=== PATIENT | male | born 1975 | race Caucasian/White ===

== ENCOUNTER 2018-03-06 13:04 | Outpatient (CLI) | payer MEDICARE, MEDICAID ==
[2018-03-06 19:12] LABS: THYROID STIMULATING HORMONE < 0.08 uIU/mL (0.34-5.60)
[2018-03-06 19:14] LABS: FREE T4 (FREE THYROXINE) 1.51 ng/dL (0.58-1.64)
== END 2018-03-06 13:05 | disposition home or self-care (01) ==
LOC: LAB.N 13:04
PROVIDERS: ATTEND Internal Medicine Endocrinology, Diabetes & Metabolism
DX: E05.00 Thyrotoxicosis with diffuse goiter without thyrotoxic crisis or storm (principal)
CPT/HCPCS: 36415; 81599; 83519; 84439; 84443; 84481

== ENCOUNTER 2018-04-30 08:37 | Outpatient (CLI) | payer MEDICARE, MEDICAID ==
--- NOTE | 2018-05-01 11:12 | Nuclear Medicine Report ---
Reason: GRAVES DISEASE Procedure Date: 05/01/2018 Accession Number: [id number] / [id number] Procedure: NM - Thyroid Imaging and Uptake CPT Code: 74013 FULL RESULT: EXAM: THYROID UPTAKE AND SCAN EXAM DATE: 05/01/2018 10:10 AM. CLINICAL HISTORY: GRAVES DISEASE. COMPARISON: None. TECHNIQUE: Patient was administered 390 microcuries of I-123 orally and returned at 4 and 24 hours for thyroid uptake measurement. At 4 and 24 hours after radioiodine ingestion, anterior gamma camera images of the patient's neck were obtained from 3 standard angles. FINDINGS: Uptake: 4 Hour: 40% (Normal 4-18%). 24 Hour: 73% (Normal 10-35%). Thyroid Scan: Thyroid gland appears mildly enlarged. No discrete hot or cold nodules. IMPRESSION: 1. Homogeneous thyroid gland with elevated radioiodine uptake, consistent with Graves' disease in the correct clinical context. 2. No discrete hot or cold nodules. [facility]
== END 2018-04-30 08:38 | disposition home or self-care (01) ==
LOC: DI 08:37
PROVIDERS: ATTEND Internal Medicine Endocrinology, Diabetes & Metabolism
DX: E05.00 Thyrotoxicosis with diffuse goiter without thyrotoxic crisis or storm (principal)
CPT/HCPCS: 78014

== ENCOUNTER 2019-02-13 11:59 | Outpatient (CLI) | payer MEDICARE, MEDICAID ==
[2019-02-13 19:24] LABS: THYROID STIMULATING HORMONE 1.62 uIU/mL (0.34-5.60)
[2019-02-13 19:26] LABS: FREE T4 (FREE THYROXINE) 0.42 ng/dL (0.58-1.64)
== END 2019-02-13 23:59 | disposition home or self-care (01) ==
LOC: LAB.WCP 11:59
PROVIDERS: ATTEND Internal Medicine Endocrinology, Diabetes & Metabolism
DX: E05.90 Thyrotoxicosis, unspecified without thyrotoxic crisis or storm (principal)
CPT/HCPCS: 36415; 84439; 84443

== ENCOUNTER 2019-06-29 14:11 | Outpatient (CLI) | payer MEDICARE, MEDICAID ==
[2019-06-29 19:26] LABS: THYROID STIMULATING HORMONE < 0.08 uIU/mL (0.34-5.60)
[2019-06-29 19:28] LABS: FREE T4 (FREE THYROXINE) 0.81 ng/dL (0.58-1.64)
== END 2019-06-29 23:59 ==
LOC: LAB.N 14:11
PROVIDERS: ATTEND Internal Medicine Endocrinology, Diabetes & Metabolism
DX: E05.00 Thyrotoxicosis with diffuse goiter without thyrotoxic crisis or storm (principal)
CPT/HCPCS: 36415; 84439; 84443; 84481

== ENCOUNTER 2019-10-06 14:53 | Outpatient (CLI) | payer MEDICARE, MEDICAID ==
[2019-10-06 19:54] LABS: THYROID STIMULATING HORMONE 12.31 uIU/mL (0.34-5.60)
[2019-10-06 19:56] LABS: FREE T4 (FREE THYROXINE) 0.51 ng/dL (0.58-1.64)
[2019-10-06 21:20] LABS: ALBUMIN 3.6 g/dL (3.2-5.5); ALBUMIN/GLOBULIN RATIO 1.3 (1.0-2.2); BILIRUBIN,TOTAL 0.5 mg/dL (0.2-1.0); CALCIUM 8.7 mg/dL (8.5-10.3); CREATININE 0.8 mg/dL (0.6-1.2); TOTAL PROTEIN 6.4 g/dL (6.7-8.2)
== END 2019-10-06 23:59 | disposition home or self-care (01) ==
LOC: LAB.N 14:53
PROVIDERS: ATTEND Physician Assistant Medical
DX: E05.00 Thyrotoxicosis with diffuse goiter without thyrotoxic crisis or storm (principal); E05.90 Thyrotoxicosis, unspecified without thyrotoxic crisis or storm
CPT/HCPCS: 36415; 80053; 84439; 84443

== ENCOUNTER 2020-10-27 19:04 | Outpatient (CLI) | payer MEDICARE, MEDICAID | END 2020-10-27 23:59 | disposition home or self-care (01) | LOC: LAB.R 19:04 | PROVIDERS: ATTEND Family Medicine | DX: R05 Cough (principal); Z20.822 Contact with and (suspected) exposure to COVID-19 ==

== ENCOUNTER 2022-08-10 11:49 | Outpatient (CLI) | payer MEDICARE, MEDICAID ==
[2022-08-10 18:01] LABS: ALBUMIN 3.9 g/dL (3.2-5.5); ALBUMIN/GLOBULIN RATIO 1.2 (1.0-2.2); BILIRUBIN,TOTAL 0.7 mg/dL (0.2-1.0); CALCIUM 9.2 mg/dL (8.5-10.3); CREATININE 1.1 mg/dL (0.6-1.2); POTASSIUM 4.2 mmol/L (3.5-5.0); TOTAL PROTEIN 7.1 g/dL (6.7-8.2)
[2022-08-10 18:03] LABS: BASOPHILS # (AUTO) 0.1 10^3/uL (0.0-0.1); BASOPHILS % (AUTO) 2.3 %; EOSINOPHILS # (AUTO) 0.1 10^3/uL (0.0-0.7); EOSINOPHILS % (AUTO) 1.3 %; HCT - HEMATOCRIT 47.8 % (42.0-52.0); HGB - HEMOGLOBIN 15.8 g/dL (14.0-18.0); LYMPHOCYTES # (AUTO) 1.4 10^3/uL (1.5-3.5); LYMPHOCYTES % (AUTO) 36.3 %; MEAN CORPUSCULAR HEMOGLOBIN 32.4 pg (27.0-31.0); MEAN CORPUSCULAR HGB CONC 33.1 g/dL (32.0-36.0); MEAN CORPUSCULAR VOLUME 98.2 fL (80.0-94.0); MEAN PLATELET VOLUME 9.7 fL (7.4-11.4); MONOCYTES # (AUTO) 0.4 10^3/uL (0.0-1.0); MONOCYTES % (AUTO) 10.2 %; NEUTROPHILS # (AUTO) 1.9 10^3/uL (1.5-6.6); NEUTROPHILS % (AUTO) 49.4 %; PLT - PLATELET COUNT 179 10^3/uL (130-450); RED BLOOD COUNT 4.87 10^6/uL (4.70-6.10); RED CELL DISTRIBUTION WIDTH 13.7 % (12.0-15.0); WHITE BLOOD COUNT 3.8 x10^3/uL (4.8-10.8)
[2022-08-10 18:22] LABS: FREE T3 2.61 pg/mL (2.5-3.9); THYROID STIMULATING HORMONE 2.03 uIU/mL (0.34-5.60)
[2022-08-10 18:22] LABS: CHOL/HDL RATIO 4.2 (<5.0); CHOLESTEROL 214 mg/dL; HDL CHOLESTEROL 51 mg/dL; LDL CHOLESTEROL,CALCULATED 148 mg/dL; LDL/HDL RATIO 2.9 (<3.6); TRIGLYCERIDES 77 mg/dL; VLDL CHOLESTEROL 15 mg/dL
[2022-08-10 18:24] LABS: FREE T4 (FREE THYROXINE) 0.79 ng/dL (0.58-1.64)
[2022-08-10 19:40] LABS: ESTIMATED AVERAGE GLUCOSE 91 mg/dL (70-100); HEMOGLOBIN A1c% 4.8 % (4.27-6.07)
== END 2022-08-10 11:50 | disposition home or self-care (01) ==
LOC: LAB.N 11:49
PROVIDERS: ATTEND Internal Medicine Endocrinology, Diabetes & Metabolism
DX: Z00.00 Encounter for general adult medical examination without abnormal findings (principal); E05.00 Thyrotoxicosis with diffuse goiter without thyrotoxic crisis or storm
CPT/HCPCS: 36415; 80053; 80061; 83036; 83721; 84439; 84443; 84480; 84481; 85025

== ENCOUNTER 2022-09-21 11:52 | Outpatient (CLI) | payer MEDICARE, MEDICAID ==
[2022-09-21 17:41] LABS: BASOPHILS # (AUTO) 0.1 10^3/uL (0.0-0.1); BASOPHILS % (AUTO) 2.2 %; EOSINOPHILS % (AUTO) 0.6 %; HCT - HEMATOCRIT 49.9 % (42.0-52.0); HGB - HEMOGLOBIN 16.1 g/dL (14.0-18.0); LYMPHOCYTES # (AUTO) 1.5 10^3/uL (1.5-3.5); LYMPHOCYTES % (AUTO) 30.5 %; MEAN CORPUSCULAR HEMOGLOBIN 31.7 pg (27.0-31.0); MEAN CORPUSCULAR HGB CONC 32.3 g/dL (32.0-36.0); MEAN CORPUSCULAR VOLUME 98.2 fL (80.0-94.0); MEAN PLATELET VOLUME 10.1 fL (7.4-11.4); MONOCYTES # (AUTO) 0.6 10^3/uL (0.0-1.0); MONOCYTES % (AUTO) 12.2 %; NEUTROPHILS # (AUTO) 2.7 10^3/uL (1.5-6.6); NEUTROPHILS % (AUTO) 54.1 %; PLT - PLATELET COUNT 181 10^3/uL (130-450); RED BLOOD COUNT 5.08 10^6/uL (4.70-6.10); RED CELL DISTRIBUTION WIDTH 13.6 % (12.0-15.0); WHITE BLOOD COUNT 4.9 x10^3/uL (4.8-10.8)
== END 2022-09-21 11:53 | disposition home or self-care (01) ==
LOC: LAB.N 11:52
PROVIDERS: ATTEND Internal Medicine Endocrinology, Diabetes & Metabolism
DX: E05.00 Thyrotoxicosis with diffuse goiter without thyrotoxic crisis or storm (principal)
CPT/HCPCS: 36415; 85025